=== PATIENT | female | born 1985 | race Asian ===

== ENCOUNTER 2019-03-09 15:18 | Emergency (ER) | payer OTHER ==
[~2019-03-09] VITALS: Ht 160 cm; Wt 68.2 kg
[~2019-03-09 15:18] MED LIST: NOCURR
[2019-03-09 15:21] VITALS: BP 136/91
[2019-03-09] MEDS ORDERED: ACETAMINOPHEN 500 MG TABLET PO ONE (16:30)
[2019-03-09] MEDS ORDERED: IBUPROFEN 800 MG TABLET PO ONE (16:30)
== END 2019-03-09 18:59 | disposition home or self-care (01) ==
LOC: EMS 15:20
DX: S90.31XA Contusion of right foot, initial encounter (principal); S60.221A Contusion of right hand, initial encounter; G89.29 Other chronic pain; F12.90 Cannabis use, unspecified, uncomplicated; W22.01XA Walked into wall, initial encounter; Y93.89 Activity, other specified; Y92.89 Other specified places as the place of occurrence of the external cause; Y99.8 Other external cause status

== ENCOUNTER 2020-11-29 15:19 | Emergency (ER) | payer OTHER ==
[~2020-11-29] VITALS: Ht 154.9 cm; Wt 75.0 kg
[2020-11-29] MEDS ORDERED: IBUPROFEN 600 MG TABLET PO ONE (16:15)
[2020-11-29] MEDS ORDERED: ACETAMINOPHEN 500 MG TABLET PO ONE (16:15)
[2020-11-29 16:18] LABS: BASOPHILS % (AUTO) 0.4 % (0.0-2.0); HEMATOCRIT 41.6 % (36-46); HEMOGLOBIN 13.9 g/dL (12.0-16.0); LYMPHOCYTES # (AUTO) 2.2 K/uL (1.0-4.8); LYMPHOCYTES % (AUTO) 26.8 % (22.0-44.0); MEAN CORPUSCULAR HEMOGLOBIN 26.9 pg (26.0-34.0); MEAN CORPUSCULAR HGB CONC 33.3 G/dL (31.0-37.0); MEAN CORPUSCULAR VOLUME 81 fL (80-100); MONOCYTES % (AUTO) 11.8 % (2.0-9.0); NEUTROPHILS # (AUTO) 4.9 K/uL (1.8-7.7); PLATELET COUNT (AUTO) 402 K/uL (150-450); RED BLOOD CELL COUNT(AUTO) 5.15 MIL/uL (4.00-5.20); RED CELL DISTRIBUTION WIDTH 14.7 % (11.5-14.5)
[2020-11-29 16:19] LABS: GLUCOSE, URINE (UA) NEGATIVE (NEGATIVE); KETONES,URINE TRACE mg/dL (NEGATIVE); LEUKOCYTE ESTERASE ,URINE MODERATE (NEGATIVE); NITRATE,URINE NEGATIVE (NEGATIVE); OCCULT BLOOD,URINE SMALL (NEGATIVE); PROTEIN,URINE POS 1+ (NEGATIVE); UROBILINOGEN,URINE 0.2 mg/dL (<=1.0)
[2020-11-29 16:20] LABS: APPEARANCE,URINE SLIGHTLY CLOUDY (CLEAR); BILIRUBIN,URINE PRELIM. POSITIVE (NEGATIVE)
[2020-11-29 16:27] LABS: ANION GAP 11 mmol/L (8-16); CALCIUM, TOTAL 9.4 mg/dL (8.8-10.5); CARBON DIOXIDE 30 mmol/L (22-29); CHLORIDE 99 mmol/L (98-107); CREATININE 0.79 mg/dL (0.60-1.30); GLOMERULAR FILTR. RATE CALC > 60 mL/min (>60); GLUCOSE,RANDOM 98 mg/dL (70-110); POTASSIUM 4.2 mmol/L (3.5-5.1); SODIUM SERUM 140 mmol/L (136-145); UREA NITROGEN, BLOOD 8 mg/dL (7-18)
[2020-11-29 16:30] LABS: BACTERIA,URINE Few /HPF (None Seen); SQUAMOUS EPITHELIAL CELL,UR Moderate /LPF (None Seen)
[2020-11-29 16:32] LABS: ALANINE AMINOTRANSFERASE 16 U/L (12-78); ALBUMIN 3.8 g/dL (3.4-5.0); ALKALINE PHOSPHATASE 67 U/L (46-116); ASPARTATE AMINOTRANSFERASE 13 U/L (15-37); BILIRUBIN,TOTAL 0.6 mg/dL (0.1-1.0); LIPASE 122 U/L (73-393); TOTAL PROTEIN, SERUM 8.4 g/dL (6.4-8.2)
[2020-11-29 17:19] VITALS: BP 120/78
== END 2020-11-29 17:49 | disposition home or self-care (01) ==
LOC: EMS 15:19
DX: N39.0 Urinary tract infection, site not specified (principal); F12.90 Cannabis use, unspecified, uncomplicated; R07.89 Other chest pain
CPT/HCPCS: 71101; 80053; 81001; 83690; 84703; 85025; 87086; 99284

== ENCOUNTER 2022-04-21 10:44 | Emergency (ER) | payer SELFPAY ==
[~2022-04-21] VITALS: Ht 162.6 cm; Wt 64.5 kg
[2022-04-21 11:07] VITALS: BP 119/68
== END 2022-04-21 11:05 | disposition left against medical advice (07) ==
LOC: EMS 10:59
DX: R20.0 Anesthesia of skin (principal); G89.29 Other chronic pain; F12.90 Cannabis use, unspecified, uncomplicated
CPT/HCPCS: 93005; 99283

== ENCOUNTER → 2023-06-28 | Emergency (ER) | payer SELFPAY ==
[~2023-06-28] VITALS: Ht 162.6 cm; Wt 62.2 kg
[2023-06-28 09:18] VITALS: BP 146/76; PULSE 89; RESP 18; TEMP 96.1
== END | disposition left against medical advice (07) ==
LOC: EMS 08:46
DX: H92.02 Otalgia, left ear (principal); Z53.21 Procedure and treatment not carried out due to patient leaving prior to being seen by health care provider